=== PATIENT | female | born 1940 | race Hispanic/Latino ===

== ENCOUNTER → 2018-06-05 | Day surgery (SDC) | payer OTHER ==
[2018-06-04 11:59] LABS: BASOPHILS # (AUTO) 0.1 (0.0-0.1); BASOPHILS % 0.5 % (0.0-1.0); EOSINOPHILS # (AUTO) 0.1 (0.0-0.4); EOSINOPHILS % 1.2 % (0.0-6.0); HEMATOCRIT 40.6 % (34.2-44.1); HEMOGLOBIN 13.5 g/dL (12.0-16.0); LYMPHOCYTES # (AUTO) 2.9 (1.0-3.2); MEAN CORPUSCULAR HEMOGLOBIN 29.5 pg (28-32); MEAN CORPUSCULAR HGB CONC 33.3 g/dL (31-35); MEAN CORPUSCULAR VOLUME 88.6 fL (81-99); MONOCYTES # (AUTO) 0.8 (0.2-0.8); NEUTROPHILS # (AUTO) 6.4 (2.1-6.9); PLATELET COUNT 348 x10e3/uL (140-360); RED BLOOD COUNT 4.58 x10e6/uL (3.6-5.1); RED CELL DISTRIBUTION WIDTH 12.6 % (11.7-14.4)
--- NOTE | 2018-06-04 12:26 | Diagnostic Imaging Report ---
EXAMINATION: PA and lateral views of the chest. COMPARISON: Chest 2 views 01/24/2017 CLINICAL HISTORY: Preop exam DISCUSSION: Lines/tubes: None. Lungs: The lungs are well inflated. Stable linear opacity projecting in the left costophrenic angle on the lateral view, consistent with linear scarring. There is no evidence of pneumonia or pulmonary edema. Pleura: There is no pleural effusion or pneumothorax. Heart and mediastinum: Cardiomediastinal silhouette is unremarkable. Pulmonary vasculature is normal. Bones and soft tissues: No acute bony abnormalities. Degenerative changes in the thoracic spine. Stable sternal deformity. IMPRESSION: No acute cardiopulmonary abnormalities. Signed by: Dr. Ross Chambers M.D. on 06/04/2018 12:22 PM
[~2018-06-05] MED LIST: AMLODIPINE BESYL5 MG PO; ASPIRIN81 MG PO; ATENOLOL50 MG PO; CEFTRIAXONE SOD 1 GM/NS 50 ML 50 ML IV ONE; DEXAMETHASONE SOD PHOS INJ 4 MG/ML VIAL ONE; EPHEDRINE SULFATE INJ 50 MG/10 ML SYR ONE; ESTRADIOL0.5 MG PO; FENTANYL CITRATE/PF 100MCG/2 ML INJ ONE; GENTAMICIN 80MG/NS 100 ML 100 ML IV ONE; GLYCOPYRROLATE INJ 1MG/ 5 ML SYR ONE; IOPAMIDOL 610MG/1ML 300 MG/ML VIAL IV ONE; LEVOTHYROXINE25 MCG PO; LIDOCAINE HCL 2% LOCAL INJ 5 ML SDV VIAL INJ ONE; LORAZEPAM1 MG PO; LOSARTAN-HCTZ1 EACH PO; NITROGLYCERIN0.4 MG SL; ONDANSETRON HCL INJ 2 MG/ML VIAL ONE; PROPOFOL IV EMULSION 10 MG/ML 20 ML VIAL ONE; RANITIDINE HCL150 M1 PO; SEVOFLURANE INHAL SOLN 250 ML PEN BTL ONE
--- OUTSIDE RECORDS SUMMARY | 2018-06-05 05:03 | XMS REPORT ---
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 Allergies, Adverse Reactions, Alerts This patient has no known allergies or adverse reactions. Medications This patient has no known medications. Results Test Description Test Time Test Comments Text Results Atomic Results Result Comments CHEST 2 VIEWS 2018-06-04 12:21:00 [facility] [address] [place] [id number] Patient Name: NORMA MORTENSEN MR #: [id number] : 1940 Age/Sex: 78/F Req #: [id number] Adm Physician: Ordered by: JEMIMA GARCIA MD Report #: [id number] Location: OR Room/Bed: Procedure: [id number] DX/CHEST 2 VIEWS Exam Date: Exam Time: REPORT STATUS: Signed EXAMINATION: PA and lateral views of the chest. COMPARISON: Chest 2 views 01/24/2017 CLINICAL HISTORY: Preop exam DISCUSSION: Lines/tubes: None. Lungs: The lungs are well inflated. Stable linear opacity projecting in the left costophrenic angle on the lateral view, consistent with linear scarring. There is no evidence of pneumonia or pulmonary edema. Pleura: There is no pleural effusion or pneumothorax. Heart and mediastinum: Cardiomediastinal silhouette is unremarkable. Pulmonary vasculature is normal. Bones and soft tissues: No acute bony abnormalities. Degenerative changes in the thoracic spine. Stable sternal deformity. IMPRESSION: No acute cardiopulmonary abnormalities. Signed by: Dr. Lorenza Chambers M.D. on 06/04/2018 12:22 PM Dictated By: LORENZA CHAMBERS MD 122 Transcribed By: ERIKA on 06/04/18 1222 COPY TO: JEMIMA GARCIA MD SP LUMBAR, COMPLETE MIN 4VW [place] [address] Patient Name: NORMA MORTENSEN MR #: [id number] : 1940 Age/Sex: 76/F Req #: [id number] Adm Physician: Ordered by: TIFFANIE PITT Report #: [id number] Location: ER Room/Bed: Procedure: [id number] DX/SP LUMBAR, COMPLETE MIN 4VW Exam Date: Exam Time: REPORT STATUS: Signed EXAMINATION: SACRUM COCCYX, SP LUMBAR, COMPLETE MIN 4VW 03/03/2017 5:29 PM COMPARISON: None INDICATION: Pain DISCUSSION: 2 views of the sacrum/coccyx (AP and lateral) 4 views of the lumbar spine (AP, lateral, and bilateral obliques). SACRUM/COCCYX: AP view of the sacrum is partially obscured by overlying bowel gas. Mild anterior angulation of the sacrum at about the level of S4-S5 is probably chronic. No fracture or dislocation. There are moderate degenerative changes at the sacroiliac joints. LUMBAR SPINE: 5 nonrib-bearing lumbar-type vertebrae are assumed. The T12 ribs are hypoplastic. Vertebral body heights are maintained. There is severe disc space narrowing at L4-L5 and L5-S1. Mild disc space narrowing is seen at the other lumbar levels. Moderate facet arthrosis affects L4-L5 and L5-S1. No malalignment. IMPRESSION: Degenerative changes of the lumbar spine and sacroiliac joints without fracture or malalignment. Mild anterior angulation of the sacrum at about the level of S4-S5, probably chronic. Eduardo Cavazos MD Signed by: Dr. Eduardo Cavazos M.D. on 03/03/2017 7:28 PM Dictated By: EDUARDO CAVAZOS MD 27 Transcribed By: ERIKA on 03/03/171927 COPY TO: TIFFANIE PITT SACRUM COCCYX [place] [address] Patient Name: NORMA MORTENSEN MR #: [id number] : 1940 Age/Sex: 76/F Req #: [id number] Adm Physician: Ordered by: TIFFANIE PITT Report #: [id number] Location: ER Room/Bed: Procedure: [id number] DX/SACRUM COCCYX Exam Date: Exam Time: REPORT STATUS: Signed EXAMINATION: SACRUM COCCYX, SP LUMBAR, COMPLETE MIN 4VW 03/03/2017 5:29 PM COMPARISON: None INDICATION: Pain DISCUSSION: 2 views of the sacrum/coccyx (AP and lateral) 4 views of the lumbar spine (AP, lateral, and bilateral obliques). SACRUM/COCCYX: AP view of the sacrum is partially obscured by overlying bowel gas. Mild anterior angulation of the sacrum at about the level of S4-S5 is probably chronic. No fracture or dislocation. There are moderate degenerative changes at the sacroiliac joints. LUMBAR SPINE: 5 nonrib-bearing lumbar-type vertebrae are assumed. The T12 ribs are hypoplastic. Vertebral body heights are maintained. There is severe disc space narrowing at L4-L5 and L5-S1. Mild disc space narrowing is seen at the other lumbar levels. Moderate facet arthrosis affects L4-L5 and L5-S1. No malalignment. IMPRESSION: Degenerative changes of the lumbar spine and sacroiliac joints without fracture or malalignment. Mild anterior angulation of the sacrum at about the level of S4-S5, probably chronic. Eduardo Cavazos MD Signed by: Dr. Eduardo Cavazos M.D. on 03/03/2017 7:28 PM Dictated By: EDUARDO CAVAZOS MD 27 Transcribed By: ERIKA on 03/03/171927 COPY TO: TIFFANIE PITT CHEST 2 VIEWS [place] [address] Patient Name: NORMA MORTENSEN MR #: [id number] : 1940 Age/Sex: 76/F Req #: [id number] Adm Physician: Ordered by: FRANK VASQUEZ MD Report #: [id number] Location: OR Room/Bed: Procedure: [id number] DX/CHEST 2 VIEWS Exam Date: 01/24/17 Exam Time: 1440 REPORT STATUS: Signed PROCEDURE: Frontal and lateral views of the chest. COMPARISON: 10/06/12 INDICATIONS: pre op for cystoscopy FINDINGS: Lines/tubes: None. Lungs: The lungs are well inflated and clear. There is no evidence of pneumonia or pulmonary edema. Pleura: There is no pleural effusion or pneumothorax. Heart and mediastinum: The heart and the mediastinum are normal. Bones: No acute bony abnormality. Degenerative changes of thoracic spine. IMPRESSION: 1. No acute cardiopulmonary disease. Dictated by: Vasquez Griffin M.D. on 01/24/2017 at 15:15 Electronically approved by: Vasquez Griffin M.D. on 01/24/2017 at 15:15 Dictated By: VASQUEZ GRIFFIN MD 1517 Transcribed By: EDWARD on 01/24/17 1515 COPY TO: FRANK VASQUEZ MD
[2018-06-05 08:30] VITALS: BP 137/69
--- NOTE | 2018-06-05 08:49 | Operative Report ---
DATE OF PROCEDURE: June 05, 2018 PREOPERATIVE DIAGNOSES 1. Microscopic hematuria. 2. Right-sided kidney stone. POSTOPERATIVE DIAGNOSES 1. Microscopic hematuria. 2. Right-sided kidney stone. PROCEDURE: Staged right-sided shock-wave lithotripsy. ANESTHESIA: General. ESTIMATED BLOOD LOSS: Minimal. COMPLICATIONS: None. INDICATIONS: Ms. Rubio is a 78-year-old female patient with microscopic hematuria recurrent as well as a 6 x 6 mm right kidney stone. She and I had a long discussion regarding the alternatives, risks and benefits, including doing nothing, shock-wave lithotripsy, ureteroscopy, percutaneous surgery, cystoscopy, IVP, etc. She voiced an understanding of the options, the alternatives, and the risks and benefits, and she elected to proceed. PROCEDURE IN DETAIL: After informed consent was obtained, the patient was taken to the operative suite and placed supine on the operating table and underwent general anesthesia by the anesthesia service. She was placed in the dorsal lithotomy position and sterilely prepped and draped for cystoscopy. A 22.5-Romanian cystoscope was inserted per urethra. A normal urethra was noted. Panendoscopy of the bladder revealed no tumors and no stones. Both ureteral orifices were in their normal anatomic location and position and were seen to efflux clear urine. Bilateral retrograde pyelograms were performed. The left was normal. The right revealed 6-mm now upper pole renal calculi. The shock wave lithotripter head was then brought into view. The stone was localized in the X, Y and Z planes. Total of 1000 shocks at a maximum setting of 5 was delivered to the stone. The stone was seen to completely fragment. There were no significant fragments left on retrograde pyelography. At this time, the bladder was drained. The patient was awakened from anesthesia and transported to the recovery room in excellent condition. SUPERVISION OF FLUOROSCOPY AND INTERPRETATION OF RETROGRADE PYELOGRAPHY: I was present throughout the entire procedure and supervised the use of fluoroscopy. There was no radiologist present at any time during the procedure. Attention was turned to the left and right ureteral orifices, which were catheterized with an 8-Romanian, cone-tip catheter in a retrograde fashion. Contrast was injected revealing delicate ureters and delicate pelvicaliceal systems. On the right side in the upper pole there was a 6 x 6 mm filling defect corresponding to the renal calculi seen on prior imaging. Job#: [id number]
== END | disposition home or self-care (01) ==
LOC: OR 05:00
PROVIDERS: ATTEND Urology
DX: N20.0 Calculus of kidney (principal); R35.1 Nocturia; N39.0 Urinary tract infection, site not specified; N28.1 Cyst of kidney, acquired; I25.2 Old myocardial infarction; I10 Essential (primary) hypertension; K21.9 Gastro-esophageal reflux disease without esophagitis; Z88.6 Allergy status to analgesic agent; Z88.1 Allergy status to other antibiotic agents; Z88.0 Allergy status to penicillin; Z88.8 Allergy status to other drugs, medicaments and biological substances; Z91.041 Radiographic dye allergy status; Z01.810 Encounter for preprocedural cardiovascular examination; Z01.812 Encounter for preprocedural laboratory examination; Z01.818 Encounter for other preprocedural examination; Z79.82 Long term (current) use of aspirin; Z86.73 Personal history of transient ischemic attack (TIA), and cerebral infarction without residual deficits
CPT/HCPCS: 36415; 50590; 71046; 85025; 93005; C1758; J0696; J1100; J1580; J2001; J2405; J2704; J3490; Q9967